=== PATIENT | male | born 1975 | race Caucasian/White ===

== ENCOUNTER 2020-04-18 00:52 | Emergency (ER) | payer OTHER ==
[~2020-04-18] VITALS: Ht 170.2 cm; Wt 80.9 kg
[2020-04-18] MEDS ORDERED: MORPHINE SULFATE 4 MG/ML VIAL. IV/SQ PRN (02:00)
--- NOTE | 2020-04-18 02:04 | PHYS DOC ---
Past Medical History Past Medical History: Kidney Stone Past Surgical History: No Surgical History Smoking Status: Current Every Day Smoker Alcohol Use: Rarely General Adult EDM: Chief Complaint: FLANK PAIN HPI: HPI: Patient is a 44 year old male with a history of kidney stones presents with a 3-day history of left flank pain radiating to the left groin. Pain is worse with palpation and movement. Pain feels similar to kidney stones but worse. Pain is currently 10 out of 10 in severity but waxes and wanes. Pain is a stabbing deep pain. Patient denies any vomiting or dysuria. Patient has not had any diarrhea chest pain or cough or fever. Review of Systems: Review of Systems: Constitutional: Denies fever or chills. [] Eyes: Denies change in visual acuity. [] HENT: Denies nasal congestion or sore throat. [] Respiratory: Denies cough or shortness of breath. [] Cardiovascular: Denies chest pain or edema. [] GI: Complains abdominal pain nausea but no vomiting diarrhea : Denies dysuria. [] Musculoskeletal: Complains of flank pain Integument: Denies rash. [] Neurologic: Denies headache, focal weakness or sensory changes. [] Endocrine: Denies polyuria or polydipsia. [] Lymphatic: Denies swollen glands. [] Psychiatric: Denies depression or anxiety. [] Heart Score: Risk Factors: Risk Factors: DM, Current or recent (<one month) smoker, HTN, HLP, family history of CAD, obesity. Risk Scores: Score 0 - 3: 2.5% MACE over next 6 weeks - Discharge Home Score 4 - 6: 20.3% MACE over next 6 weeks - Admit for Clinical Observation Score 7 - 10: 72.7% MACE over next 6 weeks - Early Invasive Strategies Current Medications: Current Medications Medications (Trade) Dose Ordered Sig/Tara Start Time Stop Time Status Last Admin Dose Admin Ketorolac Tromethamine (Toradol 15mg Vial) 15 mg 1X ONCE 04/18/20 02:30 04/18/20 02:31 Morphine Sulfate (Morphine Sulfate) 4 mg PRN Q15MIN PRN 04/18/20 02:00 04/19/20 01:59 Ondansetron HCl (Zofran) 4 mg 1X ONCE 04/18/20 02:30 04/18/20 02:31 Sodium Chloride 1,000 ml @ 1,000 mls/hr Q1H 04/18/20 02:30 04/18/20 03:29 Allergies: Allergies: Allergies Coded Allergies Type Severity Reaction Last Updated Verified No Known Drug Allergies 04/18/20 No Physical Exam: PE: Constitutional: Well developed, well nourished, mild distress HENT: Normocephalic, atraumatic, bilateral external ears normal, oropharynx moist, no oral exudates, nose normal. [] Eyes: PERRLA, EOMI, conjunctiva normal, no discharge. [] Neck: Normal range of motion, no tenderness, supple, no stridor. [] Cardiovascular:Heart rate regular rhythm, peripheral pulses intact, cap refill brisk Lungs & Thorax: Bilateral breath sounds clear, no respiratory distress Abdomen: Soft with left side abdominal tenderness without guarding or rebound no pulsatile masses no masses, Skin: Mild diaphoresis no erythema, no rash. [] Back: No tenderness, left CVA tenderness Extremities: No tenderness, no cyanosis, no clubbing, ROM intact, no edema. [] Neurologic: Alert and oriented X 3, normal motor function, normal sensory function, no focal deficits noted. [] Psychologic: Affect normal, judgement normal, mood normal. [] Current Patient Data: Labs: Laboratory Tests Test 04/18/20 01:40 04/18/20 03:45 White Blood Count 11.7 x10^3/uL Red Blood Count 5.31 x10^6/uL Hemoglobin 15.2 g/dL Hematocrit 45.7 % Mean Corpuscular Volume 86 fL Mean Corpuscular Hemoglobin 29 pg Mean Corpuscular Hemoglobin Concent 33 g/dL Red Cell Distribution Width 13.5 % Platelet Count 61 x10^3/uL Neutrophils (%) (Auto) 82 % Lymphocytes (%) (Auto) 13 % Monocytes (%) (Auto) 4 % Eosinophils (%) (Auto) 1 % Basophils (%) (Auto) 0 % Neutrophils # (Auto) 9.6 x10^3/uL Lymphocytes # (Auto) 1.5 x10^3/uL Monocytes # (Auto) 0.5 x10^3/uL Eosinophils # (Auto) 0.1 x10^3/uL Basophils # (Auto) 0.0 x10^3/uL Sodium Level 137 mmol/L Potassium Level 3.9 mmol/L Chloride Level 104 mmol/L Carbon Dioxide Level 28 mmol/L Anion Gap 5 Blood Urea Nitrogen 15 mg/dL Creatinine 1.2 mg/dL Estimated GFR (Cockcroft-Gault) 66.1 BUN/Creatinine Ratio 13 Glucose Level 135 mg/dL Calcium Level 9.3 mg/dL Total Bilirubin 0.3 mg/dL Aspartate Amino Transf (AST/SGOT) 12 U/L Alanine Aminotransferase (ALT/SGPT) 20 U/L Alkaline Phosphatase 50 U/L Total Protein 6.6 g/dL Albumin 3.3 g/dL Albumin/Globulin Ratio 1.0 Lipase 175 U/L Urine Collection Type Unknown Urine Color Red Urine Clarity Cloudy Urine pH 5.0 Urine Specific [place] 1.025 Urine Protein 30 mg/dL Urine Glucose (UA) Negative mg/dL Urine Ketones (Stick) 15 mg/dL Urine Blood Large Urine Nitrite Positive Urine Bilirubin Small Urine Urobilinogen Dipstick 2.0 mg/dL Urine Leukocyte Esterase Moderate Urine RBC Tntc /HPF Urine WBC Occ /HPF Urine Bacteria Few /HPF Urine Mucus Mod /LPF Current Medications Medications (Trade) Dose Ordered Sig/Tara Route PRN Reason Start Time Stop Time Status Last Admin Dose Admin Morphine Sulfate (Morphine Sulfate) 4 mg PRN Q15MIN PRN IV/SQ PAIN GREATER THAN 3/10 04/18/20 02:00 04/19/20 01:59 04/18/20 02:09 Sodium Chloride 1,000 ml @ 1,000 mls/hr Q1H IV 04/18/20 02:30 04/18/20 03:29 DC 04/18/20 02:10 Ondansetron HCl (Zofran) 4 mg 1X ONCE IVP 04/18/20 02:30 04/18/20 02:31 DC 04/18/20 02:09 Ketorolac Tromethamine (Toradol 15mg Vial) 15 mg 1X ONCE IVP 04/18/20 02:30 04/18/20 02:31 DC 04/18/20 02:09 Vital Signs: Vital Signs Date Time Temp Pulse Resp B/P (MAP) Pulse Ox O2 Delivery O2 Flow Rate FiO2 04/18/20 00:57 98.0 73 14 170/85 (113) 100 Room Air 98.0 Vital Signs Date Time Temp Pulse Resp B/P (MAP) Pulse Ox O2 Delivery O2 Flow Rate FiO2 04/18/20 00:57 98.0 73 14 170/85 (113) 100 Room Air 98.0 EKG: EKG: [] Radiology/Procedures: Radiology/Procedures: [][facility] [address] [place] [address] IMAGING REPORT Signed PATIENT: SUZI CELAYA ACCOUNT: [id number] : 1975 LOCATION: ER AGE: 44 SEX: M EXAM STATUS: REG ER ORD. PHYSICIAN: MARYLU BILLINGS MD REASON: L FLANK PAIN PROCEDURE: CT ABDOMEN PELVIS WO CONTRAST Study: CT abdomen/pelvis without intravenous contrast Indication: Left flank pain. Comparison: 09/22/2012 Technique: Helical CT imaging performed of the abdomen and pelvis without the use of intravenous contrast. Sagittal and coronal reformats were obtained. One or more of the following individualized dose reduction techniques were utilized for this examination: 1. Automated exposure control 2. Adjustment of the mA and/or kV according to patient size 3. Use of iterative reconstruction technique. Findings: Inherently limited evaluation without intravenous contrast. Chest: Unremarkable. Liver: Unchanged. Gallbladder/Biliary Tree: Unremarkable. Pancreas: Unremarkable. Spleen: Within normal limits for size. Adrenal Glands: Unremarkable. Kidneys/Ureters/Bladder: A low-attenuation focus exophytic off the upper pole the right kidney was present previously but has increased in size but still most typical of a cyst. No stone or collecting system dilatation on the right. Inflammatory changes involving the left kidney and proximal ureter. Mild left collecting system dilatation in the setting of a 4 mm ureteral stone 4 to 5 cm distal to the ureteropelvic junction. Additional punctate intrarenal stone at the lower pole of the left kidney. Incompletely distended bladder which is not well evaluated. Reproductive Organs: Unchanged size of the prostate with some central dystrophic mineralization. Colon: Numerous diverticuli without findings of diverticulitis. Limited evaluation of the colonic mucosa without contrast. Appendix: Normal. Small Bowel: Nonobstructed. Stomach: Unremarkable. Vasculature: Unremarkable. Lymph Nodes: Unremarkable. Peritoneum and Body Wall: No free fluid or gas. Small fat-containing umbilical hernia. Bones: No acute or aggressive osseous process. Degenerative changes greatest at L5-S1 with resultant bilateral osseous neural foraminal encroachment that is greater on the left. There is a degree of central canal stenosis at the lower lumbar spine but not fully assessed on this exam. Miscellaneous: None. Impression: 1. Obstructing 4 mm nephrolithiasis and the proximal left ureter approximately 4 to 5 cm distal to the ureteropelvic junction. Associated findings of obstructive uropathy. Additional punctate intrarenal stone on the left. 2. Chronic findings as detailed in the body of the report. Electronically signed by: MELISA JAEGER MD (04/18/2020 3:05 AM) [id number] DICTATED and SIGNED BY: MELISA JAEGER MD DATE: 04/18/20 0305 Course & Med Decision Making: Course & Med Decision Making 44-year-old male presents with left flank pain. Patient found to have a mid to proximal left ureteral stone. No evidence of sepsis. Patient is much comfortable after treatment in ER. Patient will go home on Flomax, Keflex, ibuprofen, [place], Zofran. Return precautions given. pertinent Labs and Imaging studies reviewed. (See chart for details) [] Dragon Disclaimer: Dragon Disclaimer: This electronic medical record was generated, in whole or in part, using a voice recognition dictation system. Departure Departure Impression: Primary Impression: Left ureteral calculus Additional Impression: Left sided abdominal pain Disposition: ADMITTED INPATIENT Condition: STABLE Referrals: NO PCP (PCP) UROLOGY 2-3 DAYS Patient Instructions: Kidney Stones Additional Instructions: EMERGENCY DEPARTMENT GENERAL DISCHARGE INSTRUCTIONS THANK YOU for coming to [facility] Emergency Department (ED) today and trusting us with your care. We trust that you had a positive experience in our Emergency Department. If you wish to speak to the department Management you can contact the supervisor sewing department at . YOUR FOLLOW UP INSTRUCTIONS ARE FOLLOWS: Do you have a private doctor? If you do not have a private doctor, please ask for a resource list of physicians or clinics that may be able to assist you with follow up care. The Emergency Physician has interpreted your x-rays. The X-ray specialist will also review them. If there is a change in the findings you will be notified in 48 hours when at all possible. A lab test or lab culture may have been done, your results will be reviewed and you will be notified if you need a change in treatment. ADDITIONAL INSTRUCTIONS AND INFORMATION Your care today has been supervised by a physician who is specially trained in [facility] care. Many problems require more than one evaluation for a complete diagnosis and treatment. We recommend that you schedule your follow up appointment as recommended to ensure complete treatment of your illness or injury. If you are unable to obtain follow up care and continue to have a problem, or if your condition worsens we recommend that you return to the ED. We are not able to safely determine your condition over the phone nor are we able to give sound medical advice over the phone. For these safety reasons, if you call for medical advice we will ask you to come to the ED for further evaluation If you have any questions regarding these discharge instructions please call the ED at . SAFETY INFORMATION In the interest of safety, wellness, and injury prevention; we encourage you to wear your seatbelt, if you smoke; quit smoking, and we encourage your family to use protective helmet for bicycling and other sporting events that present an increased risk for head injury. IF YOUR SYMPTOMS WORSEN OR NEW SYMPTOMS DEVELOP, OR YOU HAVE CONCERNS ABOUT YOUR CONDITION; OR IF YOUR CONDITION WORSENS WHILE YOU ARE WAITING FOR YOUR FOLLOW UP APPOINTMENT; EITHER CONTACT YOUR PRIMARY CARE DOCTOR, THE PHYSICIAN WHOSE NAME AND NUMBER YOU WERE GIVEN, OR RETURN TO THE ED IMMEDIATELY. Scripts Cephalexin (KEFLEX) 500 Mg Capsule 500 MG PO QID, #28 CAP Prov: MARYLU BILLINGS MD 04/18/20 Ondansetron Hcl (ZOFRAN) 4 Mg Tablet 1 TAB PO Q6HRS, #12 TAB Prov: MARYLU BILLINGS MD 04/18/20 Hydrocodone/Apap 5-325 (NORCO 5-325 TABLET) 1 Each Tablet 1-2 EACH PO PRN Q6HRS PRN for PAIN, #15 as needed for pain Prov: MARYLU BILLINGS MD 04/18/20 Ibuprofen (IBUPROFEN) 600 Mg Tablet 600 MG PO PRN Q6HRS PRN for INFLAMMATION, #30 TAB Prov: MARYLU BILLINGS MD 04/18/20 Tamsulosin Hcl (FLOMAX) 0.4 Mg Cap.er.24h 1 CAP PO DAILY, #7 CAP 11 Refills Prov: MARYLU BILLINGS MD 04/18/20 Justicifation of Admission Dx: Justifications for Admission: Justification of Admission Dx: N/A MARYLU BILLINGS MD Apr 18, 2020:04
[2020-04-18 02:16] LABS: BASO % 0 % (0-3); EOS # 0.1 x10^3/uL (0.0-0.7); EOS % 1 % (0-3); HEMATOCRIT 45.7 % (39.0-53.0); HEMOGLOBIN 15.2 g/dL (13.0-17.5); LYMPH # 1.5 x10^3/uL (1.0-4.8); LYMPH % 13 % (24-48); MEAN CORPUSCULAR HEMOGLOBIN 29 pg (25-35); MEAN CORPUSCULAR HGB CONC 33 g/dL (31-37); MEAN CORPUSCULAR VOLUME 86 fL (79-100); MONO # 0.5 x10^3/uL (0.0-1.1); MONO % 4 % (0-9); NEUT # 9.6 x10^3/uL (1.8-7.7); NEUT % 82 % (31-73); PLATELET COUNT 61 x10^3/uL (140-400); RED BLOOD COUNT 5.31 x10^6/uL (4.30-5.70); RED CELL DISTRIBUTION WIDTH 13.5 % (11.5-14.5); WHITE BLOOD COUNT 11.7 x10^3/uL (4.0-11.0)
[2020-04-18] MEDS ORDERED: ONDANSETRON PF 4 MG/2 ML VIAL. IVP ONE (02:30)
[2020-04-18] MEDS ORDERED: IV NORMAL SALINE 1000ML BAG 1,000 ML IV SCH (02:30)
[2020-04-18] MEDS ORDERED: KETOROLAC 15 MG/ML VIAL. IVP ONE (02:30)
[2020-04-18 02:31] LABS: CALCIUM 9.3 mg/dL (8.5-10.1); CREATININE 1.2 mg/dL (0.7-1.3); GFR 66.1; POTASSIUM 3.9 mmol/L (3.5-5.1)
[2020-04-18 02:37] LABS: ALBUMIN 3.3 g/dL (3.4-5.0); TOTAL BILIRUBIN 0.3 mg/dL (0.2-1.0); TOTAL PROTEIN 6.6 g/dL (6.4-8.2)
--- NOTE | 2020-04-18 03:08 | RAD ---
Study: CT abdomen/pelvis without intravenous contrast Indication: Left flank pain. Comparison: 09/22/2012 Technique: Helical CT imaging performed of the abdomen and pelvis without the use of intravenous contrast. Sagittal and coronal reformats were obtained. One or more of the following individualized dose reduction techniques were utilized for this examination: 1. Automated exposure control 2. Adjustment of the mA and/or kV according to patient size 3. Use of iterative reconstruction technique. Findings: Inherently limited evaluation without intravenous contrast. Chest: Unremarkable. Liver: Unchanged. Gallbladder/Biliary Tree: Unremarkable. Pancreas: Unremarkable. Spleen: Within normal limits for size. Adrenal Glands: Unremarkable. Kidneys/Ureters/Bladder: A low-attenuation focus exophytic off the upper pole the right kidney was present previously but has increased in size but still most typical of a cyst. No stone or collecting system dilatation on the right. Inflammatory changes involving the left kidney and proximal ureter. Mild left collecting system dilatation in the setting of a 4 mm ureteral stone 4 to 5 cm distal to the ureteropelvic junction. Additional punctate intrarenal stone at the lower pole of the left kidney. Incompletely distended bladder which is not well evaluated. Reproductive Organs: Unchanged size of the prostate with some central dystrophic mineralization. Colon: Numerous diverticuli without findings of diverticulitis. Limited evaluation of the colonic mucosa without contrast. Appendix: Normal. Small Bowel: Nonobstructed. Stomach: Unremarkable. Vasculature: Unremarkable. Lymph Nodes: Unremarkable. Peritoneum and Body Wall: No free fluid or gas. Small fat-containing umbilical hernia. Bones: No acute or aggressive osseous process. Degenerative changes greatest at L5-S1 with resultant bilateral osseous neural foraminal encroachment that is greater on the left. There is a degree of central canal stenosis at the lower lumbar spine but not fully assessed on this exam. Miscellaneous: None. Impression: 1. Obstructing 4 mm nephrolithiasis and the proximal left ureter approximately 4 to 5 cm distal to the ureteropelvic junction. Associated findings of obstructive uropathy. Additional punctate intrarenal stone on the left. 2. Chronic findings as detailed in the body of the report. Electronically signed by: MELISA JAEGER MD (04/18/2020 3:05 AM) [id number]
[2020-04-18 03:55] LABS: BILIRUBIN,URINE SMALL (NEG); CLARITY,URINE CLOUDY; COLOR,URINE RED; NITRITE,URINE POSITIVE (NEG); PROTEIN,URINE 30 mg/dL (NEG-TRACE)
[2020-04-18 04:00] LABS: RBC,URINE TNTC /HPF (0-2)
[2020-04-18 04:01] LABS: BACTERIA,URINE FEW /HPF (0-FEW); WBC,URINE OCC /HPF (0-4)
[2020-04-18] MEDS ORDERED: IBUP-1007 PO (04:03)
[2020-04-18] MEDS ORDERED: ONDA4TAB7 PO (04:03)
[2020-04-18] MEDS ORDERED: HYDR-3164 PO (04:03)
[2020-04-18] MEDS ORDERED: TAMS0.4C97 PO (04:03)
[2020-04-18] MEDS ORDERED: CEPH-264 PO (04:05)
[2020-04-18 04:30] VITALS: BP 168/70
== END 2020-04-18 04:30 | disposition other institution (70) ==
LOC: ER 00:52
DX: N20.1 Calculus of ureter (principal); R10.32 Left lower quadrant pain; R11.0 Nausea; F17.200 Nicotine dependence, unspecified, uncomplicated; Z87.442 Personal history of urinary calculi
CPT/HCPCS: 36415; 74176; 80053; 81001; 83690; 85025; 87086; 96361; 96374; 96375; 99284; J1885; J2270; J2405; J7030